=== PATIENT | female | born 1930 | race Caucasian/White ===

== ENCOUNTER 2017-08-22 21:39 | Emergency (ER) | payer OTHER ==
--- NOTE | 2017-08-22 21:43 | PDOC ---
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 Stein catheter was placed 2 weeks ago, no difficulty in passing catheter. Indication was due to: "Recurrent UTI" Plan was to remove catheter in its a total of 6 weeks. Patient's catheter had been doing well for the past 2 weeks. Today she was noted to be leaking around the Stein catheter. Patient has reported abdominal/bladder cramping. No fever, chills. No flank pain. She is currently on Macrobid for treatment of urinary tract infection PMH: As above PSH: Permanent pacemaker Medication: Please see MAR ALLERGIES: Sulfa Social: Limited mobility, lives at home, home health aid No toxic habits GENERAL/CONSTITUTIONAL: No: fever, chills, weakness, loss of appetite. HEAD, EYES, EARS, NOSE AND THROAT: No: ear pain, sore throat CARDIOVASCULAR: No: chest pain RESPIRATORY: No: cough, shortness of breath GASTROINTESTINAL: No: nausea, vomiting, diarrhea, abdominal pain GENITOURINARY: Yes: stein cathether leaking No: dysuria, hematuria, flank pain. MUSCULOSKELETAL: Yes: limb rigidity No: back pain SKIN : No: lesions, pallor, rash or easy bruising. NEUROLOGIC: No: headache, vertigo, paresthesias, weakness . GENERAL: The patient is in no acute distress, answers all questions appropriately, speech is difficult to understand. HEAD: Normal EYES: PERRLA, EOMI, sclera anicteric, conjunctiva clear. ENT: Ears normal, nares patent, oropharynx clear without exudates. Moist mucous membranes. NECK: Normal range of motion, supple LUNGS: Breath sounds equal, clear to auscultation bilaterally HEART:Regular rate and rhythm ABDOMEN: Soft, nontender, normoactive bowel sounds. No guarding, no rebound. No bladder distention : stein cathether in place EXTREMITIES: pt has limited range of motion of the lower extremities, muscular rigidity No edema NEUROLOGICAL: Cranial nerves II through XII grossly intact. SKIN: No erythema Past History - Past Medical History Allergies/Adverse Reactions: Allergies Allergy/AdvReac Type Severity Reaction Status Date / Time Sulfa (Sulfonamide Allergy Verified 05/20/13 16:31 Antibiotics) Home Medications: Ambulatory Orders Dorzolamide HCl/Timolol Maleat [Cosopt Eye Drops] 1 drop OU BID 05/20/13 Levothyroxine [Synthroid -] 75 mcg PO DAILY 05/20/13 Midodrine HCl 5 mg PO DAILY 05/20/13 Warfarin Sodium [Coumadin] 5 mg PO HS 05/20/13 Duloxetine HCl [Cymbalta] 30 mg PO DAILY 08/22/17 Midodrine HCl 2.5 mg PO BID 08/22/17 Pregabalin [Lyrica] 75 mg PO BID 08/22/17 Cardiac Disorders: Yes (AFIB) HTN: Yes Seizures: Yes - Surgical History Cholecystectomy: Yes - Immunization History Td Vaccination: Yes (05/11/2012) - Suicide/Smoking/Psychosocial Hx Smoking History: Never smoked Have you smoked in the past 12 months: No Number of Cigarettes Smoked Daily: 0 Hx Alcohol Use: No Substance Use Type: None Medical Decision Making - Medical Decision Making 08/22/17 22:14 Pt wearing new diaper (+) urine noted on diaper stein cathether in place balloon deflated and then re inflated Cathether removed Stein replaced No urine output Balloon inflated Pt felt discomfort Bladder flushed Pt felt discomfort Noted to have urine leaking around cathether Stein cathether removed Pt to complete course of Macrobid Pt to be seen by PMD tomorrow Clinical impression: UTI being treated, initial presentation Stein cathether dysfunction, initial presentation *DC/Admit/Observation/Transfer Diagnosis at time of Disposition: Encounter for evaluation of Stein catheter - Discharge Dispostion Disposition: HOME Condition at time of disposition: Stable Admit: No - Referrals - Patient Instructions Printed Discharge Instructions: DI for Urinary Tract Infection (UTI) Additional Instructions: Thank you for brining ms ignacio in to the ER today Please be sure to follow up with her primary care physician tomorrow Please follow up with the Urologist as well (before scheduled appointment) Continue Macrobid Monitor for wet diapers and appropriate urine output If you notice pt has NO urine output, Abdominal distention, please return to the ER for evaluation - Post Discharge Activity
[2017-08-22 21:49] VITALS: BP 153/80; PULSE 68; TEMP 97.3; BMI 23.4
== END 2017-08-22 22:23 | disposition home or self-care (01) ==
LOC: FER 21:39
PROC: 0T2BX0Z Change Drainage Device in Bladder, External Approach (ICD-10-PCS; principal; 2017-08-22)
DX: I48.91 Unspecified atrial fibrillation (principal); I10 Essential (primary) hypertension; R56.9 Unspecified convulsions
CPT/HCPCS: 51702; 99282-25